=== PATIENT | male | born 1945 | race Caucasian/White ===

== ENCOUNTER 2022-07-31 15:28 | Emergency (ER) | payer MEDICARE ==
[~2022-07-31] VITALS: Ht 180.3 cm; Wt 103.0 kg
[~2022-07-31 15:28] MED LIST: BAYER ASPIRIN R81 MG PO; CELEXA20 MG PO; CENTRUM SILVER1 TA1 PO; DULERA100 INH; FISH OIL 10001000 MG PO; K-DUR 20MEQ20 MEQ PO; LASIX20 MG PO; PROAIR HFA0.09 MG/AC IH; SIMVASTATIN40 MG PO; SINGULAIR10 MG PO; SYMBICORT1 AER IH; TAMIFLU 75MG CA75 MG PO; TYLENOL PM 5001 CA1 PO; XANAX0.5 MG PO; ZOFRAN4 MG PO
[2022-07-31 17:04] LABS: BASO % 0.3 % (0.0-1.0); EOS # 0.1 10*3/uL (0.0-0.4); EOS % 0.7 % (1.0-4.0); HEMATOCRIT 44.6 % (42.0-52.0); LYMPH # 0.4 10*3/uL (1.3-4.4); LYMPH % 4.7 % (27.0-41.0); MEAN CORPUSCULAR HGB 30.4 pg (27.0-31.0); MEAN CORPUSCULAR HGB CONC 33.4 g/dl (33.0-37.0); MEAN PLATELET VOLUME 9.3 fl (9.6-12.3); MONO # 0.4 10*3/uL (0.1-1.0); MONO % 4.3 % (3.0-9.0); NEUT # 8.3 10*3/uL (2.3-7.9); NEUT % 89.8 % (47.0-73.0); PLATELET COUNT AUTOMATED 253 10*3/uL (130-400); RED CELL DISTRI WIDTH 13.2 % (0-14.5); WHITE BLOOD COUNT 9.2 10*3/uL (4.8-10.8)
[2022-07-31 17:26] LABS: ALKALINE PHOSPHATASE 90 U/L (46-116); BUN 19 mg/dl (9-23); CHLORIDE 105 mmol/L (98-107); LIPASE 38 U/L (12-53); POTASSIUM 4.9 mmol/L (3.4-5.1); SGPT/ALT 17 U/L (10-49); TOTAL PROTEIN 7.9 gm/dL (6.0-8.0)
[2022-07-31] MEDS ORDERED: Ondansetron4 MG PO (20:26)
== END 2022-07-31 20:38 | disposition home or self-care (01) ==
LOC: ED 15:28
PROVIDERS: Family Medicine
DX: R11.2 Nausea with vomiting, unspecified (principal); Z88.8 Allergy status to other drugs, medicaments and biological substances; Z98.890 Other specified postprocedural states; Z20.822 Contact with and (suspected) exposure to COVID-19